=== PATIENT | male | born 1980 ===

== ENCOUNTER 2017-05-05 18:06 | Emergency (ER) | payer OTHER ==
--- NOTE | 2017-05-05 18:28 | UC ---
FLU HPI - HPI Summary HPI Summary: Pt presents with fevers, chills, and body aches since yesterday. He has not taken anything for his symptoms. Denies sinus symptoms, cough, SOB, chest pain, abdominal pain, n/v/d/c. - History of Current Complaint Hx Obtained From: Patient Severity Currently: Moderate Severity Initially: Moderate Pain Intensity: 5 Pain Scale Used: 0-10 Numeric <Donn Lu - Last Filed: 05/06/17 17:14> <Uzma Altamirano - Last Filed: 05/07/17 06:43> - History of Current Complaint Chief Complaint: UCGeneralIllness Stated Complaint: FLU SYMPTOMS Time Seen by Provider: 05/05/17 18:28 - Allergy/Home Medications Allergies/Adverse Reactions: Allergies Allergy/AdvReac Type Severity Reaction Status Date / Time No Known Allergies Allergy Verified 05/05/17 18:15 Home Medications: Home Medications Cetirizine* [ZyrTEC 10 MG TAB*] 10 mg PO DAILY 05/05/17 [History Confirmed 05/05] PMH/Surg Hx/FS Hx/Imm Hx Previously Healthy: Yes - Surgical History Surgical History: None - Family History Known Family History: Positive: Hypertension - Social History Occupation: Employed Full-time Lives: With Family Alcohol Use: Occasionally Substance Use Type: None Smoking Status (MU): Never Smoked Tobacco <Donn Lu - Last Filed: 05/06/17 17:14> Review of Systems Constitutional: Fever, Fatigue, Other - Body aches Skin: Negative Eyes: Negative ENT: Negative Respiratory: Negative Cardiovascular: Negative Gastrointestinal: Negative Neurological: Negative Psychological: Negative All Other Systems Reviewed And Are Negative: Yes <Donn Lu - Last Filed: 05/06/17 17:14> Physical Exam Triage Information Reviewed: Yes Appearance: No Pain Distress, Well-Nourished Vital Signs: Initial Vital Signs Temp 100.2 F 05/05/17 18:07 Pulse 67 05/05/17 18:07 Resp 18 05/05/17 18:07 BP 115/75 05/05/17 18:07 Pulse Ox 98 05/05/17 18:07 Vital Signs Reviewed: Yes Eyes: Positive: Conjunctiva Clear. Negative: Conjunctiva Inflamed, Discharge ENT: Positive: Hearing grossly normal, Pharynx normal, TMs normal, Uvula midline. Negative: Pharyngeal erythema, Nasal congestion, Nasal drainage, TM bulging, TM dull, TM red, Tonsillar swelling, Tonsillar exudate, Hoarse voice, Sinus tenderness Neck: Positive: Supple, Nontender, No Lymphadenopathy Respiratory: Positive: Chest non-tender, Lungs clear, Normal breath sounds, No respiratory distress, No accessory muscle use Cardiovascular: Positive: RRR, No Murmur, Pulses Normal Neurological: Positive: Alert Psychological: Positive: Age Appropriate Behavior Skin: Negative: rashes <Donn Lu - Last Filed: 05/06/17 17:14> Vital Signs: Initial Vital Signs Temp 100.2 F 05/05/17 18:07 Pulse 67 05/05/17 18:07 Resp 18 05/05/17 18:07 BP 115/75 05/05/17 18:07 Pulse Ox 98 05/05/17 18:07 <Uzma Altamirano - Last Filed: 05/07/17 06:43> Flu Course/Dx - Course Course Of Treatment: Influenza A positive he is requesting tamiflu - Differential Dx/Diagnosis Provider Diagnoses: Influenza A <Donn Lu - Last Filed: 05/06/17 17:14> Discharge <Donn Lu - Last Filed: 05/06/17 17:14> <Uzma Altamirano - Last Filed: 05/07/17 06:43> - Discharge Plan Condition: Stable Disposition: HOME Prescriptions: Oseltamivir CAP* [Tamiflu CAP*] 75 mg PO BID #10 cap Patient Education Materials: Influenza (ED) Referrals: No Primary Care Phys,NOPCP [Primary Care Provider] - Additional Instructions: If you develop a fever, shortness of breath, chest pain, new or worsening symptoms - please call your PCP or go to the ED. Attestations User Type: Provider - I was available for consult. This patient was seen by the advanced practice provider. The patient was not presented to, seen by, or examined by me.-Santi <Uzma Altamirano - Last Filed: 05/07/17 06:43>
== END 2017-05-05 18:53 | disposition home or self-care (01) ==
LOC: UCEAST 18:06
DX: J10.1 Influenza due to other identified influenza virus with other respiratory manifestations (principal)
CPT/HCPCS: 87502; 99201; G0463